=== PATIENT | female | born 1990 | race Caucasian/White ===

== ENCOUNTER 2018-01-20 15:14 | Emergency (ER) | payer OTHER ==
[2018-01-20 15:35] VITALS: BP 119/79; PULSE 96; TEMP 98.9; BMI 31.6
[2018-01-20] MEDS ORDERED: RABIES IMMUNE GLOBULIN 300 UNITS/1 ML VIAL IM ONE (15:46)
[2018-01-20] MEDS ORDERED: RABIES VACCINE (PCEC)/PF 2.5 UNIT/VIAL IM ONE (15:47)
[2018-01-20] MEDS ORDERED: RABIES IMMUNE GLOBULIN 300 UNITS/1 ML VIAL ONE ×2 (15:52→15:55)
--- NOTE | 2018-01-20 15:53 | PDOC ---
History of Present Illness - General Chief Complaint: Revisit,Rabies Injection Stated Complaint: RABIES VACCINE History Source: Patient, Unavil. due to pt. cond. 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 happened . at that time CM decided to observe the dog for symptoms. however due to inability to get in tough with pets signaling project engineer, they told her to come to ed to get vaccine after all. no f/c states wounds from bit has healed. tetanus is upto date. no herzog no fever. Past History - Past Medical History Allergies/Adverse Reactions: Allergies Allergy/AdvReac Type Severity Reaction Status Date / Time No Known Allergies Allergy Verified 09/30/17 14:19 Home Medications: Ambulatory Orders NK [No Known Home Medication] 01/20/18 COPD: No - Immunization History TDAP Vaccination: Yes (09/30/17) - Suicide/Smoking/Psychosocial Hx Smoking History: Never smoked Hx Alcohol Use: Yes (RARE) Drug/Substance Use Hx: No Substance Use Type: None Review of Systems - Review of Systems Constitutional: No: Chills, Diaphoresis HEENTM: No: Eye Pain, Blurred Vision Respiratory: No: Cough, Orthopnea Cardiac (ROS): No: Chest Pain, Edema ABD/GI: No: Abdominal Distended : No: Burning, Dysuria Musculoskeletal: No: Back Pain, Gout Integumentary: No: Bruising, Change in Color All Other Systems: Reviewed and Negative *Physical Exam - Vital Signs Last Vital Signs Temp Pulse Resp BP Pulse Ox 98.9 F 96 H 18 119/79 100 01/20/18 15:16 01/20/18 15:16 01/20/18 15:16 01/20/18 15:16 01/20/18 15:16 Medical Decision Making - Medical Decision Making 01/20/18 15:50 delay in presenation due to plans to initially watch dog for rabies symptoms. will give immunoglobulin and vaccine, for four shot series. rabies should be given 0 01/20 3 01/23 7 01/27 14 02/0301/20/18 15:54 *DC/Admit/Observation/Transfer Diagnosis at time of Disposition: Rabies, need for prophylactic vaccination against - Discharge Dispostion Disposition: HOME Condition at time of disposition: Improved - Referrals Referrals: Adrienne Mendosa [Primary Care Provider] - - Patient Instructions Printed Discharge Instructions: Rabies Vaccine Additional Instructions: you were given your first rabies vaccine today in addition to the rabies immunoglobulin. you will need repeat vaccinations on #0 /2 #3 11/ #7 / 314 02/03 return for any other concerns. continue to apply bacitracin to your wounds. follow up with your primary doctor as needed. - Post Discharge Activity
== END 2018-01-20 17:06 | disposition home or self-care (01) ==
LOC: FER 15:14
PROC: 3E0234Z Introduction of Serum, Toxoid and Vaccine into Muscle, Percutaneous Approach (ICD-10-PCS; principal; 2018-01-20)
DX: Z23 Encounter for immunization (principal); Z20.3 Contact with and (suspected) exposure to rabies
CPT/HCPCS: 90375; 90675; 99281-25

== ENCOUNTER 2018-01-23 14:40 | Emergency (ER) | payer OTHER ==
[2018-01-23 14:45] VITALS: BP 120/75; PULSE 80; TEMP 98.1; BMI 31.6
[2018-01-23] MEDS ORDERED: RABIES VACCINE (PCEC)/PF 2.5 UNIT/VIAL IM ONE (14:57)
--- NOTE | 2018-01-23 15:11 | PDOC ---
History of Present Illness - General History Source: Patient Exam Limitations: No Limitations <JaniceKavin - Last Filed: 01/23/18 15:21> - History of Present Illness Initial Comments: 01/23/18 15:37 27 year old female with no significant past medical history presents to the ED for her second day of rabies prophylaxis treatment. Patient was seen 3 days ago when she was bit by a dog at an emergency clinic who was in pain. She denies known history of rabies in the dog. She denies any fevers, headaches, muscle pains or rashes. <Heather Perez - Last Filed: 01/23/18 15:39> - General Chief Complaint: Revisit,Rabies Injection Stated Complaint: Rabies shot Time Seen by Provider: 01/23/18 14:43 Past History - Past Medical History COPD: No - Immunization History TDAP Vaccination: Yes (09/30/17) - Suicide/Smoking/Psychosocial Hx Smoking History: Never smoked Hx Alcohol Use: Yes (RARE) Drug/Substance Use Hx: No Substance Use Type: None <Kavin Camacho - Last Filed: 01/23/18 15:21> <Heather Perez - Last Filed: 01/23/18 15:39> - Past Medical History Allergies/Adverse Reactions: Allergies Allergy/AdvReac Type Severity Reaction Status Date / Time No Known Allergies Allergy Verified 01/23/18 14:41 Home Medications: Ambulatory Orders NK [No Known Home Medication] 01/20/18 Review of Systems - Review of Systems Able to Perform ROS?: Yes Comments:: 01/23/18 15:38 GENERAL/CONSTITUTIONAL: No fever or chills. No weakness. HEAD, EYES, EARS, NOSE AND THROAT: No change in vision. No ear pain or discharge. No sore throat. CARDIOVASCULAR: No chest pain or shortness of breath. RESPIRATORY: No cough, wheezing, or hemoptysis. GASTROINTESTINAL: No nausea, vomiting, diarrhea or constipation. GENITOURINARY: No dysuria, frequency, or change in urination. MUSCULOSKELETAL: No joint or muscle swelling or pain. No neck or back pain. SKIN: No rash NEUROLOGIC: No headache, vertigo, loss of consciousness, or change in strength/ sensation. ENDOCRINE: No increased thirst. No abnormal weight change. HEMATOLOGIC/LYMPHATIC: No anemia, easy bleeding, or history of blood clots. ALLERGIC/IMMUNOLOGIC: No hives or skin allergy. All Other Systems: Reviewed and Negative <Heather Perez - Last Filed: 01/23/18 15:39> *Physical Exam - Vital Signs Last Vital Signs Temp Pulse Resp BP Pulse Ox 98.1 F 80 18 120/75 100 01/23/18 14:41 01/23/18 14:41 01/23/18 14:41 01/23/18 14:41 01/23/18 14:41 <Kavin Camacho - Last Filed: 01/23/18 15:21> - Vital Signs Last Vital Signs Temp Pulse Resp BP Pulse Ox 98.1 F 80 18 120/75 100 01/23/18 14:41 01/23/18 14:41 01/23/18 14:41 01/23/18 14:41 01/23/18 14:41 - Physical Exam Comments: 01/23/18 15:38 GENERAL: Awake, alert, and fully oriented, in no acute distress HEAD: No signs of trauma EXTREMITIES: Normal range of motion, no edema. No clubbing or cyanosis. No cords, erythema, or tenderness NEUROLOGICAL: Cranial nerves II through XII grossly intact. Normal speech, normal gait SKIN: Warm, Dry, normal turgor, no rashes, no lacerations. <Heather Perez - Last Filed: 01/23/18 15:39> ED Treatment Course - Medications Given in the ED: ED Medications Discontinued Medications Generic Name Dose Route Start Last Admin Trade Name Freq PRN Reason Stop Dose Admin Rabies Vaccine 2.5 unit 01/23/18 14:57 01/23/18 15:10 Rabavert Rabies Vaccine IM 01/23/18 14:58 2.5 unit .ONCE ONE Administration <Heather Perez - Last Filed: 01/23/18 15:39> Medical Decision Making - Medical Decision Making 01/23/18 15:21 A portion of this note was documented by scribe services under my direction. I have reviewed the details of the note, within reason, and agree with the documentation with the following case summary and management plan written by me. Patient treated in the ED. Nursing notes are reviewed and incorporated into the medical decision-making. Vital signs reviewed. Vital Signs Temp Pulse Resp BP Pulse Ox 98.1 F 80 18 120/75 100 01/23/18 14:41 01/23/18 14:41 01/23/18 14:41 01/23/18 14:41 01/23/18 14:41 27-year-old female returns for day 3 rabies vaccination. She has no complaints otherwise feels well. We'll update her days 3 rabies vaccination have her return on January 27 for her 7 day vaccination. I discussed the physical exam findings, ancillary test results and final diagnoses with the patient. I answered all of the patient's questions. The patient was satisfied with the care received and felt comfortable with the discharge plan and treatment plan. The patient will call their primary care physician within 24 hours to arrange follow-up and will return to the Emergency Department with any new, persistant or worsening symptoms. <Kavin Camacho - Last Filed: 01/23/18 15:21> *DC/Admit/Observation/Transfer - Discharge Dispostion Decision to Admit order: No <Kavin Camacho - Last Filed: 01/23/18 15:21> - Attestations Scribe Attestion: 01/23/18 15:39 Documentation prepared by Heather Perez, acting as medical legal investigator for Kavin Camacho MD. <Heather Perez - Last Filed: 01/23/18 15:39> Diagnosis at time of Disposition: Rabies, need for prophylactic vaccination against - Discharge Dispostion Disposition: HOME Condition at time of disposition: Stable - Patient Instructions Printed Discharge Instructions: DI for Rabies Vaccine Additional Instructions: Please return on 01/27 for your day 7 rabies vaccination.
== END 2018-01-23 15:20 | disposition home or self-care (01) ==
LOC: FER 14:40
PROC: 3E0234Z Introduction of Serum, Toxoid and Vaccine into Muscle, Percutaneous Approach (ICD-10-PCS; principal; 2018-01-23)
DX: Z23 Encounter for immunization (principal); Z20.3 Contact with and (suspected) exposure to rabies
CPT/HCPCS: 90675; 99281-25

== ENCOUNTER 2018-01-27 18:02 | Emergency (ER) | payer OTHER ==
[2018-01-27 18:18] VITALS: BP 132/80; PULSE 90; TEMP 98.9; BMI 31.6
[2018-01-27] MEDS ORDERED: RABIES VACCINE (PCEC)/PF 2.5 UNIT/VIAL IM ONE (18:32)
--- NOTE | 2018-01-27 18:36 | PDOC ---
History of Present Illness <Jeanie Chino - Last Filed: 01/27/18 18:31> - History of Present Illness Initial Comments: This patient is a 27 year old female with no significant past medical history presents to the ED for her third set of rabies prophylaxis treatment as well an new dog bite on her right hand. 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 Today she got bit again by a pitbull. She states that this dog is up-to-date on his vaccines. Patient states she is up-to-date on tetanus. <Sybil Reina - Last Filed: 01/27/18 18:47> - General Chief Complaint: Revisit,Rabies Injection Stated Complaint: RABIES VACCINE PREVIOUS AND NEW DOG BITE TODAY Time Seen by Provider: 01/27/18 18:08 Past History - Past Medical History COPD: No Other medical history: DENIES - Immunization History TDAP Vaccination: Yes (09/30/17) Immunization Up to Date: Yes - Suicide/Smoking/Psychosocial Hx Smoking History: Never smoked Have you smoked in the past 12 months: No Information on smoking cessation initiated: No Hx Alcohol Use: No Drug/Substance Use Hx: No Substance Use Type: None <Jeanie Chino - Last Filed: 01/27/18 18:31> <Sybil Reina - Last Filed: 01/27/18 18:47> - Past Medical History Allergies/Adverse Reactions: Allergies Allergy/AdvReac Type Severity Reaction Status Date / Time No Known Allergies Allergy Verified 01/27/18 18:04 Home Medications: Ambulatory Orders Desog-E.estradiol/E.estradiol [Azurette 28 Day Tablet] 1 tab PO DAILY 01/27/18 Review of Systems - Review of Systems Comments:: GENERAL/CONSTITUTIONAL: No fever or chills. No weakness. HEAD, EYES, EARS, NOSE AND THROAT: No change in vision. No ear pain or discharge. No sore throat. CARDIOVASCULAR: No chest pain or shortness of breath. RESPIRATORY: No cough, wheezing, or hemoptysis. GASTROINTESTINAL: No nausea, vomiting, diarrhea or constipation. GENITOURINARY: No dysuria, frequency, or change in urination. MUSCULOSKELETAL: No joint or muscle swelling or pain. No neck or back pain. SKIN: + laceration to right hand. NEUROLOGIC: No headache, vertigo, loss of consciousness, or change in strength/ sensation. ENDOCRINE: No increased thirst. No abnormal weight change. HEMATOLOGIC/LYMPHATIC: No anemia, easy bleeding, or history of blood clots. ALLERGIC/IMMUNOLOGIC: No hives or skin allergy. <Sybil Reina - Last Filed: 01/27/18 18:47> *Physical Exam - Vital Signs Last Vital Signs Temp Pulse Resp BP Pulse Ox 98.9 F 90 18 132/80 99 01/27/18 18:04 01/27/18 18:04 01/27/18 18:04 01/27/18 18:04 01/27/18 18:04 <Jeanie Chino S - Last Filed: 01/27/18 18:31> - Vital Signs Last Vital Signs Temp Pulse Resp BP Pulse Ox 98.9 F 90 18 132/80 99 01/27/18 18:04 01/27/18 18:04 01/27/18 18:04 01/27/18 18:04 01/27/18 18:04 - Physical Exam Comments: GENERAL: Awake, alert, and fully oriented, in no acute distress HEAD: No signs of trauma EYES: PERRLA, EOMI, sclera anicteric, conjunctiva clear EXTREMITIES: Neurovascularly intact. Normal range of motion, no edema. No clubbing or cyanosis. No cords, erythema, or tenderness NEUROLOGICAL: Cranial nerves II through XII grossly intact. Normal speech, normal gait SKIN: Small superfical laceration to the palmar surface of the right hand. No active bleeding. Warm, Dry, normal turgor. <Sybil Reina - Last Filed: 01/27/18 18:47> Medical Decision Making - Medical Decision Making Cleaned wound Gave 3rd dose of rabies vaccine. 01/27/18 18:[address] Duncan [facility]. Dog is immunized and confirmed patient will receive 3rd vaccination. <Sybil Reina - Last Filed: 01/27/18 18:47> *DC/Admit/Observation/Transfer - Discharge Dispostion Decision to Admit order: No <Jeanie Chino S - Last Filed: 01/27/18 18:31> - Attestations Scribe Attestion: 11/09/18 18:43 Documentation prepared by Sybil Reina, acting as medical appointment scheduler for Jeanie Chino MD. <Sybil Reina - Last Filed: 01/27/18 18:47> Diagnosis at time of Disposition: Rabies, need for prophylactic vaccination against Dog bite, hand Qualifiers: Encounter type: initial encounter Laterality: right Qualified Code(s): S61.451A - Open bite of right hand, initial encounter - Discharge Dispostion Condition at time of disposition: Stable - Patient Instructions Printed Discharge Instructions: DI for Rabies Vaccine Additional Instructions: Keep wound clean and dry Daily dressing changes Return for next rabies booster as scheduled
== END 2018-01-27 19:00 | disposition home or self-care (01) ==
LOC: FER 18:02
PROC: 3E0234Z Introduction of Serum, Toxoid and Vaccine into Muscle, Percutaneous Approach (ICD-10-PCS; principal; 2018-01-27)
DX: Z23 Encounter for immunization (principal); Z20.3 Contact with and (suspected) exposure to rabies
CPT/HCPCS: 90675; 99281-25

== ENCOUNTER 2018-02-03 19:42 | Emergency (ER) | payer OTHER ==
[2018-02-03 19:49] VITALS: BP 148/78; PULSE 89; TEMP 98.9; BMI 31.6
--- NOTE | 2018-02-03 20:18 | PDOC ---
History of Present Illness - General Chief Complaint: Revisit,Rabies Injection Stated Complaint: RABIES FOLLOW UP Time Seen by Provider: 02/03/18 20:18 History Source: Patient Exam Limitations: No Limitations - History of Present Illness Initial Comments: 02/03/18 20:44 MELISSA This patient is a 27 year old female with no significant past medical history presents to the ED for her fourth set of rabies prophylaxis treatment (no prior vaccines) . 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 Last week she was bitten again by a pitbull to her right palm, no s/s infection, fevers or discharge. Patient states she is up-to-date on tetanus. Past History - Past Medical History Allergies/Adverse Reactions: Allergies Allergy/AdvReac Type Severity Reaction Status Date / Time No Known Allergies Allergy Verified 01/27/18 18:04 Home Medications: Ambulatory Orders Desog-E.estradiol/E.estradiol [Azurette 28 Day Tablet] 1 tab PO DAILY 01/27/18 COPD: No - Immunization History TDAP Vaccination: Yes (09/30/17) Immunization Up to Date: Yes - Suicide/Smoking/Psychosocial Hx Smoking History: Never smoked Have you smoked in the past 12 months: No Hx Alcohol Use: No Drug/Substance Use Hx: No Substance Use Type: None *Physical Exam - Vital Signs Last Vital Signs Temp Pulse Resp BP Pulse Ox 98.9 F 89 16 148/78 98 02/03/18 19:46 02/03/18 19:46 02/03/18 19:46 02/03/18 19:46 02/03/18 19:46 - Physical Exam Comments: 02/03/18 20:45 General: NAD, well appearing Vascular: 2+ DP pulses symmetric and equal. Back: no midline tenderness, no stepoffs, FROM MSK/Neuro Exam notable for soft compartments, Cap refill <2 sec. Proximal and distal strength 5/5, cosmetic dentist strength 5/5 - equal and symmetric. FROM. Sensation grossly intact to light touch. Skin: color normal color, warm and well perfused. +dry skin, healing bite wound over right hypothenar eminence, no discharge or streaking. Medical Decision Making - Medical Decision Making 02/03/18 20:46 27 YOF presenting with rabies vaccine #4 post dog bite 01/20/18, when ppx initiated. has had right hand bite from pitbull last week, well healing. no signs of superimposed infection vitals wnl getting #4 rabies ppx vaccine, final in unvaccinated individual CM information faxed over DC in stable condition. follow up with CM call. 02/03/18 20:49 *DC/Admit/Observation/Transfer Diagnosis at time of Disposition: Rabies, need for prophylactic vaccination against - Discharge Dispostion Disposition: HOME Condition at time of disposition: Stable Decision to Admit order: No - Referrals - Patient Instructions Printed Discharge Instructions: DI for Rabies Vaccine Additional Instructions: you were vaccinated with the final, 4th dose of rabies vaccine today the department of health was made aware please follow up with your call avoid exposing yourself to injuries with potentially rabid animals. - Post Discharge Activity
[2018-02-03] MEDS ORDERED: RABIES VACCINE (PCEC)/PF 2.5 UNIT/VIAL IM ONE (20:23)
== END 2018-02-03 20:53 | disposition home or self-care (01) ==
LOC: FER 19:42
PROC: 3E0234Z Introduction of Serum, Toxoid and Vaccine into Muscle, Percutaneous Approach (ICD-10-PCS; principal; 2018-02-03)
DX: Z23 Encounter for immunization (principal); Z20.3 Contact with and (suspected) exposure to rabies
CPT/HCPCS: 90675; 99281-25

== ENCOUNTER 2022-07-22 13:39 | Emergency (ER) | payer OTHER ==
[2022-07-22 13:56] VITALS: BP 129/63; PULSE 97; RESP 16; TEMP 98; BMI 36.6
[2022-07-22] MEDS ORDERED: ACETAMINOPHEN 500 MG TABLET (FP) PO ONE (14:24)
[2022-07-22] MEDS ORDERED: ACETAMINOPHEN 500 MG TABLET (FP) ONE (14:46)
[2022-07-22] MEDS ORDERED: MAGNESIUM OXIDE 400 MG TABLET (FP) PO ONE (16:34)
[2022-07-22] MEDS ORDERED: MAGNESIUM OXIDE 400 MG TABLET (FP) ONE (16:54)
[2022-07-22] MEDS ORDERED: MAG HYDROX/AL HYDROX/SIMETH 30 ML UNIT-DOSE CUP ONE (16:54)
== END 2022-07-22 17:01 | disposition home or self-care (01) ==
LOC: JER 13:39
DX: S09.90XA Unspecified injury of head, initial encounter (principal); R51.9 Headache, unspecified; W10.9XXA Fall (on) (from) unspecified stairs and steps, initial encounter
CPT/HCPCS: 70450-TC; 84703; 99284-25

== ENCOUNTER 2023-03-01 20:04 | Inpatient (IN) | payer OTHER ==
[2023-03-01] MEDS: ELECTROLYTE-148 SOLN 1,000 ML IV SCH ×2 (21:00→23:37)
[2023-03-01] MEDS ORDERED: BUTORPHANOL TARTRATE 2 MG/ML VIAL IVPB PRN (21:16)
[2023-03-01] MEDS ORDERED: PROMETHAZINE HCL 25 MG/1 ML VIAL IVPB ONE (21:16)
[2023-03-01 21:36] LABS: BASO % 0.2 % (0-2.0); EOS % 0.2 % (0-4.5); HEMATOCRIT 37.9 % (32.4-45.2); HEMOGLOBIN 12.4 GM/dL (10.7-15.3); LYMPH % 20.6 % (8-40); MCH 27.4 pg (25.7-33.7); MCHC 32.8 g/dl (32.0-36.0); MEAN CELL VOLUME 83.6 fl (80-96); MEAN PLT VOLUME 8.4 fl (7.5-11.1); MONO % 6.7 % (3.8-10.2); NEUT % 72.3 % (42.8-82.8); PLATELET COUNT 264 10^3/uL (134-434); RBC 4.53 M/mm3 (3.60-5.2); RDW 15.6 % (11.6-15.6); WHITE BLOOD COUNT 10.6 K/mm3 (4.0-10.0)
[2023-03-01 21:42] VITALS: BMI 40.7
[2023-03-01 21:43] LABS: INR 1.01 (0.83-1.09); PROTHROMBIN TIME (PATIENT) 11.7 SEC (9.7-13.0)
[2023-03-01 21:46] LABS: ACTIVATED PTT 28.1 SECONDS (25.2-36.5)
[2023-03-01 22:01] LABS: POTASSIUM 3.8 mmol/L (3.5-5.1)
[2023-03-01 22:02] LABS: CALCIUM 8.7 mg/dL (8.5-10.1)
[2023-03-01 22:03] LABS: BLOOD UREA NITROGEN 10.6 mg/dL (7-18)
[2023-03-01 22:06] LABS: CREATININE 0.7 mg/dL (0.55-1.3)
[2023-03-01] MEDS ORDERED: FENTANYL/BUPIVACAINE/NS/PF - PCEA - 50 ML DISP.SYRIN EP ONE (22:47)
[2023-03-01] MEDS ORDERED: NALOXONE HCL 0.4 MG/ML VIAL IVPUSH PRN (23:20)
[2023-03-01] MEDS ORDERED: FENTANYL/BUPIVACAINE/NS/PF - PCEA - 50 ML DISP.SYRIN EP SCH (23:30)
[2023-03-02] MEDS ORDERED: OXYTOCIN 30 UNITS in 0.9% NS 30 UNIT/500 ML INFUS.BAG IVPB ONE (01:01)
[2023-03-02] MEDS ORDERED: WITCH HAZEL 50% (TUCKS) 40 PAD/JAR PAD TP PRN (01:05)
[2023-03-02] MEDS ORDERED: BENZOCAINE 20% 57 GM BOTTLE TP PRN (01:05)
[2023-03-02] MEDS ORDERED: ACETAMINOPHEN 325 MG TABLET (FP) PO PRN (01:05)
[2023-03-02] MEDS ORDERED: BISACODYL 10 MG SUPP.RECT RC PRN (01:05)
[2023-03-02] MEDS ORDERED: oxyCODONE HCL 5 MG TABLET PO PRN (01:05)
[2023-03-02] MEDS ORDERED: BENZOCAINE 28 GM HEMORRHOIDAL OINTMENT TP PRN (01:05)
[2023-03-02] MEDS ORDERED: METHYLERGONOVINE MALEATE 0.2 MG/1 ML AMP IM PRN (01:05)
[2023-03-02] MEDS: OXYTOCIN 20 UNITS in 0.9% NS 20 UNIT/1,000 ML INFUS.BAG IV SCH ×2 (01:07→06:30)
[2023-03-02] MEDS ORDERED: OXYTOCIN 30 UNITS in 0.9% NS 30 UNIT/500 ML INFUS.BAG IVPB SCH (01:15)
[2023-03-02] MEDS ORDERED: FENTANYL/BUPIVACAINE/NS/PF - PCEA - 50 ML DISP.SYRIN EP ONE (02:33)
[2023-03-02] MEDS ORDERED: OXYTOCIN 20 UNITS in 0.9% NS 20 UNIT/1,000 ML INFUS.BAG IV ONE (02:33)
[2023-03-02 06:35] LABS: CORD BASE EXCESS -8.6 mmol/L (0-2); CORD HCO3 20.3 mmHg (20-29); CORD HCO3 20.8 mmHg (20-29); CORD PCO2 58.5 mmHg (30-78); CORD PCO2 63.7 mmHg (30-78); CORD pH 7.122 (7.14-7.44); CORD pH 7.168 (7.14-7.44)
[2023-03-02] MEDS ORDERED: FERROUS SO4 325 MG TABLET (FP) ONE (07:35)
[2023-03-02] MEDS: FERROUS SO4 325 MG TABLET (FP) PO SCH ×3 (07:39→16:58)
[2023-03-02] MEDS: PRENATAL VITAMINS W/ FOLIC ACID TABLET (FP) PO SCH (09:03)
[2023-03-02] MEDS: LABETALOL HCL 200 MG TABLET (FP) PO SCH ×2 (09:03→22:21)
[2023-03-02] MEDS: IBUPROFEN 600 MG TABLET (FP) PO PRN (20:19)
[2023-03-03 05:53] LABS: BASO % 0.5 % (0-2.0); EOS % 0.6 % (0-4.5); HEMATOCRIT 29.9 % (32.4-45.2); HEMOGLOBIN 9.9 GM/dL (10.7-15.3); LYMPH % 25.5 % (8-40); MCH 28.2 pg (25.7-33.7); MCHC 33.1 g/dl (32.0-36.0); MEAN CELL VOLUME 85.1 fl (80-96); MEAN PLT VOLUME 7.9 fl (7.5-11.1); MONO % 5.8 % (3.8-10.2); NEUT % 67.6 % (42.8-82.8); PLATELET COUNT 229 10^3/uL (134-434); RBC 3.52 M/mm3 (3.60-5.2); RDW 15.5 % (11.6-15.6); WHITE BLOOD COUNT 14.2 K/mm3 (4.0-10.0)
[2023-03-03] MEDS: FERROUS SO4 325 MG TABLET (FP) PO SCH ×3 (08:25→17:22)
[2023-03-03] MEDS: LABETALOL HCL 200 MG TABLET (FP) PO SCH ×2 (09:49→21:55)
[2023-03-03] MEDS: PRENATAL VITAMINS W/ FOLIC ACID TABLET (FP) PO SCH (09:50)
[2023-03-03] MEDS ORDERED: SENNOSIDES/DOCUSATE COMBO (SENNA PLUS) TABLET (UD) PO PRN (22:00)
[2023-03-04] MEDS: IBUPROFEN 600 MG TABLET (FP) PO PRN ×2 (01:29→08:54)
[2023-03-04 08:00] LABS: BASO % 0.4 % (0-2.0); EOS % 0.9 % (0-4.5); HEMATOCRIT 32.9 % (32.4-45.2); HEMOGLOBIN 10.9 GM/dL (10.7-15.3); LYMPH % 28.2 % (8-40); MEAN CELL VOLUME 84.8 fl (80-96); MEAN PLT VOLUME 7.6 fl (7.5-11.1); MONO % 5.9 % (3.8-10.2); NEUT % 64.6 % (42.8-82.8); PLATELET COUNT 254 10^3/uL (134-434); RBC 3.89 M/mm3 (3.60-5.2); RDW 15.8 % (11.6-15.6); WHITE BLOOD COUNT 10.8 K/mm3 (4.0-10.0)
[2023-03-04] MEDS: FERROUS SO4 325 MG TABLET (FP) PO SCH (09:09)
[2023-03-04] MEDS: PRENATAL VITAMINS W/ FOLIC ACID TABLET (FP) PO SCH (09:35)
[2023-03-04] MEDS: LABETALOL HCL 200 MG TABLET (FP) PO SCH (09:44)
[2023-03-04 11:18] VITALS: BP 132/88; PULSE 98; RESP 17; TEMP 98.4
== END 2023-03-04 11:45 | disposition home or self-care (01) | DRG 560 ==
LOC: JDEL 20:04 → JLDR 20:26 → JDEL 20:27 → J3W 03-02 08:05
PROVIDERS: ADMIT Obstetrics & Gynecology; ATTEND Obstetrics & Gynecology
PROC: 10D07Z6 Extraction of Products of Conception, Vacuum, Via Natural or Artificial Opening (ICD-10-PCS; principal; 2023-03-02)
PROC: 0HQ9XZZ Repair Perineum Skin, External Approach (ICD-10-PCS; 2023-03-02)
DX: O13.4 Gestational [pregnancy-induced] hypertension without significant proteinuria, complicating childbirth (principal); O75.81 Maternal exhaustion complicating labor and delivery; O76 Abnormality in fetal heart rate and rhythm complicating labor and delivery; O63.1 Prolonged second stage (of labor); O70.0 First degree perineal laceration during delivery; Z3A.39 39 weeks gestation of pregnancy; Z37.0 Single live birth
CPT/HCPCS: 36415; 36600; 80048; 82803; 85025; 85610; 85730; 86780; 86850; 86900; 86901

== ENCOUNTER 2023-05-30 12:43 | Emergency (ER) | payer OTHER ==
[2023-05-30 12:51] VITALS: BP 134/76; PULSE 99; RESP 18; TEMP 97; BMI 33.3
[2023-05-30] MEDS: KETOROLAC TROMETHAMINE 30 MG/1 ML VIAL IM ONE (14:20)
[2023-05-30] MEDS ORDERED: KETOROLAC TROMETHAMINE 30 MG/1 ML VIAL ONE (14:21)
== END 2023-05-30 15:32 | disposition home or self-care (01) ==
LOC: JERFT 12:43
PROC: 3E0233Z Introduction of Anti-inflammatory into Muscle, Percutaneous Approach (ICD-10-PCS; principal; 2023-05-30)
DX: M25.532 Pain in left wrist (principal); M65.4 Radial styloid tenosynovitis [de Quervain]; W01.0XXA Fall on same level from slipping, tripping and stumbling without subsequent striking against object, initial encounter
CPT/HCPCS: 73110-TC-LT-FY; 99284-25